=== PATIENT | female | born 1990 | race Caucasian/White ===

== ENCOUNTER 2024-04-02 14:36 | Outpatient (CLI) | payer OTHER, SELFPAY ==
--- NOTE | 2024-04-02 15:00 | CRLHL7_ITS ---
For Patients: As a result of the Century Cures Act, medical imaging exams and procedure reports are released immediately into your electronic medical record. You may view this report before your referring provider. If you have questions, please contact your health care provider. INDICATION: First trimester scan, establish dates. COMPARISON: None. TECHNIQUE: Real-time rooney-scale imaging of the pelvis was performed. FINDINGS: Sonographic imaging demonstrates a single living intrauterine gestation. The embryo demonstrates a regular cardiac rate measuring 159 beats per minute. The embryo`s crown-rump length measurement of 2.2 cm corresponds to a gestational age of 8 weeks 6 days with a sonographic due date of 11/06/2024. There is a normal-appearing yolk sac. There are no gross abnormalities noted within the embryo at this early state of development. The gestational sac has a normal appearance. There is no evidence of a perigestational hemorrhage. The amount of fluid within the sac appears appropriate for gestational age. The cervix is closed. The myometrium appears normal. Corpus luteal cyst right ovary. Left ovary not visualized. There are no suspicious fluid collections noted in the cul-de-sac. IMPRESSION: Normal first trimester OB ultrasound exam. Gestational age calculated at 8 weeks 6 days with a sonographic due date of 11/06/2024. Dictated by Justin Adames MD @ 04/02/2024 3:43:56 PM (Electronically Signed)
== END 2024-04-02 14:37 | disposition home or self-care (01) ==
LOC: US 14:36
PROVIDERS: Visit Provider Physician Assistant
DX: Z34.91 Encounter for supervision of normal pregnancy, unspecified, first trimester (principal); Z3A.08 8 weeks gestation of pregnancy
CPT/HCPCS: 76817; 86592; 86703; 86704; 86706; 86762; 86787; 86803; 86850; 86900; 86901; 87086; 87340; 87491; 87591

== ENCOUNTER 2024-05-14 12:34 | Outpatient (CLI) | payer OTHER, SELFPAY | END 2024-05-14 12:35 | disposition home or self-care (01) | LOC: NFLDREF 12:35 | PROVIDERS: Visit Provider Obstetrics & Gynecology | DX: R39.15 Urgency of urination (principal) | CPT/HCPCS: 87086 ==

== ENCOUNTER 2024-06-19 08:23 | Outpatient (CLI) | payer OTHER, SELFPAY | END 2024-06-19 08:24 | disposition home or self-care (01) | LOC: US 08:23 | PROVIDERS: Visit Provider Obstetrics & Gynecology | DX: O99.212 Obesity complicating pregnancy, second trimester (principal); O09.522 Supervision of elderly multigravida, second trimester; Z3A.20 20 weeks gestation of pregnancy | CPT/HCPCS: 76811 ==

== ENCOUNTER 2024-07-17 10:58 | Outpatient (CLI) | payer OTHER, SELFPAY ==
--- OUTSIDE RECORDS SUMMARY | 2024-07-16 12:00 | XMS_ITS ---
Patient Encounters Created on: December 05, 2023 Lesa Monterroso : 1990 Sex: Female Author Organization [facility] [place] [facility] [employer]. Address [address] [place] [id number] Social History Section No Social History Data Procedures No Procedures Data
--- NOTE | 2024-07-17 14:00 | CRLHL7_ITS ---
For Patients: As a result of the Century Cures Act, medical imaging exams and procedure reports are released immediately into your electronic medical record. You may view this report before your referring provider. If you have questions, please contact your health care provider. INDICATION: New onset IUGR on earlier ultrasound done today. COMPARISON: OB ultrasound 07/17/2024 and 06/19/2024. TECHNIQUE: Ultrasound OB pelvis biophysical profile. Real time rooney scale imaging of the fetus was performed without non-stress testing. FINDINGS: Sonographic imaging demonstrates a single living intrauterine gestation. The fetus has a regular cardiac rate of 135 beats per minute. The fetus has a breech orientation. The placenta lies posteriorly. The cervix is closed and measures 4.0 cm in length. Single deepest pocket measures 5.6 cm. breathing movements: 2/2 Gross body movements: 2/2 tone: 2/2 Amniotic fluid volume: 2/2 Total: 03/07 IMPRESSION: Normal biophysical profile score 8 out of 8. Dictated by Alma Lovell MD @ 07/18/2024 2:15:23 AM (Electronically Signed)
== END 2024-07-17 10:59 | disposition home or self-care (01) ==
LOC: US 10:58
PROVIDERS: Visit Provider Physician Assistant
DX: O36.5990 Maternal care for other known or suspected poor fetal growth, unspecified trimester, not applicable or unspecified (principal)
CPT/HCPCS: 76816; 76819; 76820

== ENCOUNTER 2024-07-25 08:53 | Outpatient (CLI) | payer OTHER, SELFPAY ==
--- NOTE | 2024-07-25 09:15 | CRLHL7_ITS ---
For Patients: As a result of the Century Cures Act, medical imaging exams and procedure reports are released immediately into your electronic medical record. You may view this report before your referring provider. If you have questions, please contact your health care provider. INDICATION: IUGR COMPARISON: 07/17/2024 TECHNIQUE: Real time rooney scale imaging of the fetus was performed as well as color Doppler and spectral Doppler analysis of the umbilical artery. FINDINGS/IMPRESSION: Sonographic imaging demonstrates a single living intrauterine gestation. Fetus demonstrates a regular cardiac rate of 143 beats per minute. Fetus has a vertex position. The umbilical artery demonstrates adequate diastolic blood flow. The S/D ratio measures 2.9. The amniotic fluid volume appears normal and there is a single deepest pocket measurement of 7.4 cm. Dictated by Justin Adames MD @ 07/25/2024 10:46:15 AM (Electronically Signed)
== END 2024-07-25 08:54 | disposition home or self-care (01) ==
LOC: US 08:54
PROVIDERS: Visit Provider Obstetrics & Gynecology
DX: O36.5920 Maternal care for other known or suspected poor fetal growth, second trimester, not applicable or unspecified (principal); Z3A.25 25 weeks gestation of pregnancy
CPT/HCPCS: 76815; 76820

== ENCOUNTER 2024-08-01 07:53 | Outpatient (CLI) | payer OTHER, SELFPAY ==
--- NOTE | 2024-08-01 08:15 | CRLHL7_ITS ---
For Patients: As a result of the Century Cures Act, medical imaging exams and procedure reports are released immediately into your electronic medical record. You may view this report before your referring provider. If you have questions, please contact your health care provider. INDICATION: IUGR COMPARISON: 07/25/2024 TECHNIQUE: Real time rooney scale imaging of the fetus was performed as well as color Doppler and spectral Doppler analysis of the umbilical artery. FINDINGS/IMPRESSION: Sonographic imaging demonstrates a single living intrauterine gestation. Fetus demonstrates a regular cardiac rate of 139 beats per minute. Fetus has a vertex position. The umbilical artery demonstrates adequate diastolic blood flow. The S/D ratio measures 2.8. The amniotic fluid volume appears normal and there is a single deepest pocket measurement of 5.2 cm. Cervix is closed and measures 4.0 cm. Dictated by Justin Adames MD @ 08/01/2024 9:52:33 AM (Electronically Signed)
== END 2024-08-01 07:54 | disposition home or self-care (01) ==
PROVIDERS: Visit Provider Obstetrics & Gynecology
DX: O36.5990 Maternal care for other known or suspected poor fetal growth, unspecified trimester, not applicable or unspecified (principal)
CPT/HCPCS: 76815; 76820

== ENCOUNTER 2024-08-12 08:31 | Outpatient (CLI) | payer OTHER, SELFPAY | END 2024-08-12 08:32 | disposition home or self-care (01) | LOC: NFLDREF 08-19 04:47 | PROVIDERS: Visit Provider Obstetrics & Gynecology | DX: Z34.03 Encounter for supervision of normal first pregnancy, third trimester (principal) | CPT/HCPCS: 85461; 86592; 86850 ==

== ENCOUNTER 2024-08-23 08:05 | Outpatient (CLI) | payer OTHER, SELFPAY | END 2024-08-23 08:06 | disposition home or self-care (01) | LOC: NFLDREF 09-02 00:15 | PROVIDERS: Visit Provider Obstetrics & Gynecology | DX: R73.09 Other abnormal glucose (principal) | CPT/HCPCS: 82951; 82952 ==

== ENCOUNTER 2024-09-09 08:09 | Outpatient (CLI) | payer OTHER, SELFPAY ==
--- NOTE | 2024-09-09 08:15 | CRLHL7_ITS ---
For Patients: As a result of the Century Cures Act, medical imaging exams and procedure reports are released immediately into your electronic medical record. You may view this report before your referring provider. If you have questions, please contact your health care provider. OB ULTRASOUND LMP: 01/29/2024. MELISSA by LMP: 11/04/2024. GA: 32 w, 0 d. Single. Comparison: [facility] 08/07/2024. US 08/01/2024, 07/25/2024, 07/17/2024. INDICATION: History of IUGR. TECHNIQUE: Real time rooney scale imaging of the fetus was performed. Transabdominal. CERVIX: Not visualized. POSITIONING: Vertex. AMNIOTIC FLUID: 5.8 cm. SDP (N: greater than 2 x 1 cm) PLACENTA: Technique: Transabdominal. PLACENTA POSITION: Posterior. DOPPLER: heart rate: 141 bpm. Umbilical artery: 3.6 S/D. (28-34 w = less than 4.0.) BIOMETRY: BPD: 8.1 cm. 32 w, 3 d, 52.5 percent. HC: 30.0 cm. 33 w, 2 d, 47.6 percent. AC: 28.1 cm. 32 w, 1 d, 51.5 percent. FL: 5.6 cm. 29 w, 4 d, <3 percent. FL/AC ratio: 20.1 percent. HC/AC ratio: 1.07. EFW: 1777 g. Weight: 3 lbs, 15 oz. age by this US: 31 w, 6 d. MELISSA by this US: 11/05/2024. Percentile by MELISSA: 23.9 percent. IMPRESSION: 1. Sonographic gestational age 31 weeks 6 days and sonographic due date 11/05/2024. Good correlation with dates. Normal interval of growth. 2. Estimated weight 24th percentile. Abdominal circumference 52nd percentile. 3. Femur length less than 3rd percentile. 4. Normal S/D ratio 3.6. Justin Adames M.D. Diagnostic Radiologist [email or web address] DON/jhonny barry/Dictated by: Justin Adames MD @ 09/09/2024 9:28:00 AM (Electronically Signed)
== END 2024-09-09 08:10 | disposition home or self-care (01) ==
PROVIDERS: Visit Provider Obstetrics & Gynecology
DX: O24.419 Gestational diabetes mellitus in pregnancy, unspecified control (principal); O36.5930 Maternal care for other known or suspected poor fetal growth, third trimester, not applicable or unspecified; Z3A.32 32 weeks gestation of pregnancy
CPT/HCPCS: 76816; 76820

== ENCOUNTER 2024-09-23 08:06 | Outpatient (CLI) | payer OTHER, SELFPAY ==
--- NOTE | 2024-09-23 08:15 | CRLHL7_ITS ---
For Patients: As a result of the Century Cures Act, medical imaging exams and procedure reports are released immediately into your electronic medical record. You may view this report before your referring provider. If you have questions, please contact your health care provider. INDICATION: BMI TECHNIQUE: Limited transabdominal two-dimensional rooney-scale ultrasound examination. COMPARISON: 09/09/2024 FINDINGS: There is a living fetus in cephalic lie with gestational age of 34 weeks and EDC of 11/04/2024. The biophysical profile score is 8/8 with component scores of 2 for breathing movements, 2 for gross body movements, 2 for tone and 2 for amniotic fluid/SDP. The heart rate is measured at 138 beats per minute and the rhythm appears regular. The amniotic fluid volume is within normal limits with single deepest pocket of 5.1 cm. The placenta is posterior and superior to the cervical os. There is no evidence of previa. IMPRESSION: 1. Living fetus in cephalic lie with gestational age of 34 weeks and EDC of 11/04/2024. 2. Biophysical profile score is 8/8. Dictated by Zeyad Drummond MD @ 09/23/2024 10:29:18 AM (Electronically Signed)
== END 2024-09-23 08:07 | disposition home or self-care (01) ==
LOC: US 08:06
PROVIDERS: Visit Provider Obstetrics & Gynecology
DX: O99.213 Obesity complicating pregnancy, third trimester (principal); Z3A.34 34 weeks gestation of pregnancy
CPT/HCPCS: 76819

== ENCOUNTER 2024-09-30 08:11 | Outpatient (CLI) | payer OTHER, SELFPAY | END 2024-09-30 08:12 | disposition home or self-care (01) | PROVIDERS: Visit Provider Obstetrics & Gynecology | DX: O99.210 Obesity complicating pregnancy, unspecified trimester (principal) | CPT/HCPCS: 76819 ==

== ENCOUNTER 2024-10-07 08:09 | Outpatient (CLI) | payer OTHER, SELFPAY | END 2024-10-07 08:10 | disposition home or self-care (01) | LOC: US 08:10 | PROVIDERS: Visit Provider Obstetrics & Gynecology | DX: O99.213 Obesity complicating pregnancy, third trimester (principal); Z3A.36 36 weeks gestation of pregnancy | CPT/HCPCS: 76816; 76819 ==

== ENCOUNTER 2024-10-07 09:15 | Outpatient (CLI) | payer OTHER, SELFPAY | END 2024-10-07 09:16 | disposition home or self-care (01) | LOC: NFLDREF 10-08 15:20 | PROVIDERS: Visit Provider Obstetrics & Gynecology | DX: Z34.03 Encounter for supervision of normal first pregnancy, third trimester (principal) | CPT/HCPCS: 87081; 87653 ==

== ENCOUNTER 2024-10-14 08:14 | Outpatient (CLI) | payer OTHER, SELFPAY ==
--- NOTE | 2024-10-14 08:15 | CRLHL7_ITS ---
For Patients: As a result of the Cures Act, medical imaging exams and procedure reports are released immediately into your electronic medical record. You may view this report before your referring provider. If you have questions, please contact your health care provider. OB ULTRASOUND BIOPHYSICAL PROFILE LMP: 01/29/2024. MELISSA by LMP: 11/04/2024. GA: 37 w, 0 d. Single. Comparison: 10/07/2024, 09/30/2024, 09/23/2024. INDICATION: Obesity in . TECHNIQUE: Real time grayscale imaging of the fetus was performed. Transabdominal. CERVIX: Not visualized. POSITIONING: Vertex. AMNIOTIC FLUID: 6.6 cm. SDP (N: greater than 2 x 1 cm) BIOPHYSICAL PROFILE: 2: Gross body movements 2: tone 2: Respiratory activity 2: Amniotic fluid SDP (N: greater than 2 x 1 cm) 03/07: Total score PLACENTA: Technique: Transabdominal. PLACENTA POSITION: Posterior. DOPPLER: heart rate: 135 bpm. IMPRESSION: Normal biophysical profile 03/07. Justin Adames M.D. Diagnostic Radiologist [email or web address] DON/jhonny barry/Dictated by: Justin Adames MD @ 10/14/2024 10:27:00 AM (Electronically Signed)
== END 2024-10-14 08:15 | disposition home or self-care (01) ==
LOC: US 08:14
PROVIDERS: Visit Provider Obstetrics & Gynecology
DX: O99.213 Obesity complicating pregnancy, third trimester (principal); Z3A.37 37 weeks gestation of pregnancy
CPT/HCPCS: 76819

== ENCOUNTER 2024-10-21 02:02 | Inpatient (IN) | payer OTHER, SELFPAY ==
[2024-10-21] VITALS (26 sets, daily range): BP systolic 104–149; BP diastolic 63–98; PULSE 70–134; RESP 16–18; TEMP 36.1–36.9; O2SAT 89–100; BMI 46.9
[2024-10-21] MEDS: miSOPROStoL 25 MCG/0.25 TABLET PO (02:23)
[2024-10-21] MEDS: AMPICILLIN 2 GM in 0.9 % SODIUM CHLORIDE Mini-bag 100 ML IVPB (02:23)
[2024-10-21 02:30] LABS: Basophils Percent Auto 0.2 % (0.0-3.0); Eosinophils Percent Auto 0.7 % (0.0-7.0); Hematocrit 37.3 % (33.0-51.0); Hemoglobin* 12.7 gm/dL (12.0-16.0); Immature Granulocytes Pct Auto 0.1 %; Lymphocytes Percent Auto 14.9 % (20-44); Mean Corpuscular HGB Conc 34 gm/dL (32-36); Mean Corpuscular Hemoglobin 29 pg (26-34); Mean Corpuscular Volume 85 fL (80-100); Monocytes Percent Auto 4.1 % (0.0-11.0); Platelet Count* 291 K/uL (140-440); RDW Coefficient of Variation % 13.3 % (11.5-15.5); Red Blood Count 4.37 m/uL (4.00-5.20); White Blood Count* 13.38 K/uL (4.50-11.00)
[2024-10-21 02:32] LABS: Slide Review Reflex No
[2024-10-21] MEDS: hydrOXYzine pamoate 25 MG CAPSULE 100 MG PO (03:32)
[2024-10-21] MEDS: MORPHINE 10 MG/ML inj IM (03:33)
[2024-10-21] MEDS: AMPICILLIN 1 GM in 0.9 % SODIUM CHLORIDE Mini-bag 100 ML IVPB (05:59)
--- NOTE | 2024-10-21 06:23 | P.LDBA_ITS ---
Subjective History of Present Illness Date Seen: 10/21/24 Narrative: Patient was being admitted to Labor and Delivery for PROM. She is a 34 year old at 38 0/7 weeks gestation. Her full history and physical was dictated by Dr. Archibald on 10/14/2024. Please see this for details. Patient presented to the Center at 0118 following SROM at 0020, clear fluid noted. Gross ruptured of membranes confirmed upon admission. Patient was feeling menstrual-like cramping, but no overt contractions. heart rate tracing category 1. Cervix initially 1.5 cm/70% effaced/-3 station. GBS prophylaxis initiated for known GBS positive status. Cytotec 25 mcg PO administered. Now in active labor, requested epidural. Specific Issues/Plans Spouse: Henrry. Baby: Boy! Leon name # 08/12/2024 Gestational Diabetes, A1 (as of 10/14) Elevated 1hr GTT: 159 3hr GTT 08/23/24: F 97 (H), 1hr 198 (H), 2hr 168 (H), 3hr 96 (NL) Nutrition referral completed on 08/28/24 # growth restriction - 8% at follow-up (for suboptimal visualization at 20wk) w/ MFM on 07/17 - Repeat growth US at [facility] 08/07/2024: EFW 17% so no longer meets criteria for weekly NST + KIM. - Continue monthly EFW and if EFW < 10% in the future then will need to reinstate weekly NST + KIM - Normal EFW as of 10/07 # conceived while on Wegovy, last injection 02/26 She reported a 30 lb weight loss # obesity, BMI 43.9 Hemoglobin A1c: 5.3 Aspirin 81 mg starting at 12 weeks Nutrition referral placed 04/02/2024 Anesthesiology consult: 10/14: [] MFM consult with level 2: referral on 05/01/24 MFM recommendations: Wkly BPP starting at 34 weeks # Ocular migraines At 1st OB she discontinued her propanolol # Family history of pulmonary embolism Patient has had a negative thrombophilia workup # AMA Maternity T21: No increased risk for aneuploidy: Boy! LVL 2: referral ordered on 05/01/2024 # Rh-negative (B-): Spouse is Rh(+) RhoGAM 08/12/2024 # GBS positive, no antibiotic allergy Ampicillin in labor Imagin06/19/2024 LvL 2 US: Variable position. SDP 4.9cm. EFW 25%. No anomalies identified. 07/17/2024: Variable position. SDP 4.8cm. Post placenta w/o previa. 3 vessel cord. EFW 7.5% 08/07/2024: Vtx. SDP 6.5cm. EFW 17% 09/09/2024: Vertex, SDP 5.8 cm. EFW 1777 g, 3 lb 15 oz, 23.9%. FL <3%. S/D: 3.6. 10/07/24: Cephalic, SDP 5.9, BPP 8/8, EFW 43.7%, BPD 94%, HC 62.9%, AC 57.2%, FL 4.9%. Immunizations/Other: covid: 07/25/24 flu: 05/01/2024 Tdap: 08/28/2024 RSV: 09/09/24 Rhogam: 08/12/2024 34 week hgb: 12.2 H&P: Dr. Archibald 10/14/2024 OB - Problem Based A/P Additional Plan (1) SROM (spontaneous rupture of membranes): Status: Acute (2) Active labor at term: Status: Acute (3) growth restriction antepartum: Status: Acute (4) Gestational diabetes: Status: Acute (5) AMA (advanced maternal age) multigravida 35+: Status: Acute Delivery/Labor/Induction Plan Plan: expectant management OB Result Labs Blood Type: B (-) negative Rubella: immune RPR/VDLR: nonreactive GBS Status: positive HBsAG: negative OB Exam Physical Exam Vital signs: Temp Pulse Resp BP 98.2 F 70 18 112/63 10/21/24 04:45 10/21/24 04:45 10/21/24 04:45 10/21/24 04:45 Detailed Labor and Delivery Exam Patient Gravid: Yes Dilation (cm): 4 Effacement (%): 100 Contraction intensity: Strong/Firm Comments: cervical exam per nursing staff Fetus (Single) Station: 0 Amniotic Membrane Fluid Description: Clear Heart Rate Baseline: 120 Monitor Accelerations: Absent Monitor Decelerations: None Filter Washer And Presser Variability: Minimal (3-5)
[2024-10-21] MEDS: fentaNYL 100 MCG/2 ML inj 25 MCG INTRATHECA (06:25)
[2024-10-21] MEDS: LACTATED RINGERS 1000 ML 1,000 ML 1125 ML IV (06:27)
[2024-10-21] MEDS: CEFAZOLIN 2 GM INJ 3 GM IVP (07:10)
[2024-10-21] MEDS: AZITHROMYCIN 500 MG in 0.9 % SODIUM CHLORIDE 250 ml 250 ML 255 MG IVPB (07:15)
--- NOTE | 2024-10-21 07:18 | CRLHL7_ITS ---
For Patients: As a result of the Century Cures Act, medical imaging exams and procedure reports are released immediately into your electronic medical record. You may view this report before your referring provider. If you have questions, please contact your health care provider. INDICATION: INTRA OP EXAM. NO TOWEL COUNT PERFORMED, DOUBLE CHECKING FOR TOWELS. (Sic) COMPARISON: None available. TECHNIQUE: A single intraoperative radiograph of the lower abdomen and pelvis was performed at 0743 hours (as indicated in the study navigator in [place]). FINDINGS: Limited field of view (the right flank/paracolic gutter is excluded from the field of view, as is the lower pelvis just above the superior pubic rami). No radiopaque foreign body is identified. Dictated by Dane Hoffman MD @ 10/21/2024 7:57:30 AM (Electronically Signed)
--- NOTE | 2024-10-21 07:44 | SUR.OPER ---
PATIENT BROUGHT TO OR #5 PER OB BED. Patient positioned supine on OR #5 bed for the intubatioN ?Final approval of positioning by surgeon. SURGEON DECLARES POST OP X-RAY CLEAR OF RETAINED ITEMS.
--- NOTE | 2024-10-21 07:51 | P.ANES_ITS ---
Anesthesia Charges Start Date/Time Anesthesia Start Date: 10/21/24 Anesthesia Start Time: 06:59 Stop Date/Time Anesthesia Stop Date: 10/21/24 Anesthesia Stop Time: 08:20 Summary Emergency: TIAN Coding CPT Codes CPT Codes: ANESTH CS DELIVERY - 85442 ([id number]) P3 - PATIENT W/SEVERE SYS DISEASE, QK - LINE APPLIANCE ASSEMBLER 2-4 CNCRNT ANES PROC, QX - STOKER INSTALLATION MECHANIC SVC W/ MD MED DIRECTION Additional Codes: Summary - Emergency: TIAN ([id number])
--- NOTE | 2024-10-21 07:51 | W.ANESCHARGE ---
Anesthesia Charges Start Date/Time Anesthesia Start Date: 10/21/24 Anesthesia Start Time: 06:59 Stop Date/Time Anesthesia Stop Date: 10/21/24 Anesthesia Stop Time: 08:20 Summary Emergency: TIAN Coding CPT Codes CPT Codes: ANESTH CS DELIVERY - 42781 ([id number]) P3 - PATIENT W/SEVERE SYS DISEASE, QK - ENDOCRINOLOGIST 2-4 CNCRNT ANES PROC, QX - BRANCH LENDING OFFICER SVC W/ MD MED DIRECTION Additional Codes: Summary - Emergency: TIAN ([id number])
--- NOTE | 2024-10-21 07:54 | SUR.OPER ---
CORD BLOOD SPECIMEN SENT WITH OB RN's
--- NOTE | 2024-10-21 08:13 | PM.OBPRCCS ---
Procedure Date of procedure: 10/21/24 Pre-op diagnosis: 1. Thirty-eight weeks gestation. 2. Terminal bradycardia during second stage of labor. 3. Failed vacuum attempt. Post-op diagnosis: same Procedure Done: Global Will [facility] bill your pro fee for this procedure?: Yes Blood Loss Measurement Type: EBL (300 mL) Bakri Used: No Surgeon: Elizabeth Colin MD Unit Manager [employer]: Mimi Jay MD Anesthesia Type: General Findings: Live-born male , cephalic presentation, Apgars 3, 6 and 8 at 1, 5 and 10 minutes respectively. Normal appearing uterus, tubes and ovaries. Procedure Name: Emergent low transverse section. Procedure Description: INDICATIONS: The patient received an ITN for labor analgesia at 0633. She was positioned in the dorsal supine position. Preparations were made for pushing, as the patient had been found to be completely dilated by her attending RN just prior to her request for regional analgesia. At 0651, the patient began pushing. I found that there was an anterior cervical rim, which was easily reduced over the vertex with maternal pushing effort. The heart tones demonstrated a deceleration to 50 beats per minute and then dagoberto to the 70s. The patient was repositioned in first the left lateral recumbent and then the right lateral recumbent position. Heart tones remained in the 70s to 80s. With the next maternal contraction at 0655, a kiwi vacuum was applied to the vertex, and gentle traction applied with maternal pushing effort. There was no visible descent of the vertex. heart tones were found to still be low. A scalp electrode was applied at 1793-8852, which confirmed heart tones in the 50s. A code white was called. The patient entered the operating room at 0659. She was quickly prepared and draped (allison catheter was inserted and the abdomen splashed with Betadine) in the dorsal supine position and general anesthesia was obtained. A Pfannenstiel skin incision was made with a scalpel. The subcutaneous adipose and fascia were incised in the midline and the incision extended laterally in a blunt fashion. The rectus muscles were then in the midline. The Jadon O retractor was then placed into the incision. The lower uterine segment was then incised in a transverse fashion with the scalpel. The uterine incision was extended laterally with blunt finger fractionation. The infant's head was found to be impacted in the pelvis, and the left shoulder was presenting at the hysterotomy incision. With some difficulty, I was able to flex the neck and rotate the shoulder such that the head was delivered while maintaining flexion. The infant was delivered at 0707. The cord was doubly clamped and cut, and the was handed off the field for evaluation and resuscitation. The placenta was delivered spontaneously with umbilical cord traction and fundal massage. The uterus was cleared of all clots and debris. The uterine incision was reapproximated in a running locking fashion with a 0 chromic suture. A 2nd layer of the same suture was used to imbricate in horizontal fashion. The gutters were irrigated and suctioned. Hemostasis was visualized. Cassandra was placed over the raw lower uterine segment surfaces. All instruments and retractors were removed. The anterior peritoneum was reapproximated in a running fashion with a 3-0 Vicryl suture. The subfascial tissues were carefully inspected and hemostasis assured. The fascia was reapproximated in a running fashion with a looped 0 Maxon suture. The subcutaneous tissues were copiously irrigated. Hemostasis was assured. The subcutaneous fat layer was reapproximated in a running fashion with 3-0 plain gut. The skin was closed in a subcuticular fashion with 4-0 Vicryl. A silver Mepilex dressing was applied over the incision. An intraoperative x-ray was performed that confirmed that there were no instruments or sponges left in the abdomen or pelvis, as a complete sponge and instrument count was not completed prior to the incision. Cord blood was obtained for maternal Rh-negative status following delivery of the placenta. An RN was able to draw a venous blood gas off the placenta as well. The patient was taken to the recovery room, awake, and in stable condition. She did receive 3 grams of IV Ancef and 500 mg IV azithromycin intraoperatively. Complications: None. Pathology: specimen obtained, sent to pathology (Placenta, as IUGR noted during the ) Surgery Debrief Performed: Yes Condition: stable Disposition: PACU
--- NOTE | 2024-10-21 08:31 | P.ANES_ITS ---
Anesthesia Charges Start Date/Time Anesthesia Start Date: 10/21/24 Anesthesia Start Time: 06:59 Stop Date/Time Anesthesia Stop Date: 10/21/24 Anesthesia Stop Time: 08:20 Summary Emergency: DIE PRESSER Coding CPT Codes CPT Codes: ANES/ANALG CS DELIVER ADD-ON - 77367 ([id number]) P3 - PATIENT W/SEVERE SYS DISEASE, QK - SURVEILLANCE MANAGER 2-4 CNCRNT ANES PROC, QX - DIE PRESSER SVC W/ MD MED DIRECTION Additional Codes: Summary - Emergency: DIE PRESSER ([id number])
--- NOTE | 2024-10-21 08:31 | W.ANESCHARGE ---
Anesthesia Charges Start Date/Time Anesthesia Start Date: 10/21/24 Anesthesia Start Time: 06:59 Stop Date/Time Anesthesia Stop Date: 10/21/24 Anesthesia Stop Time: 08:20 Summary Emergency: GARDE MANAGER Coding CPT Codes CPT Codes: ANES/ANALG CS DELIVER ADD-ON - 54224 ([id number]) P3 - PATIENT W/SEVERE SYS DISEASE, QK - UTILITY FORESTER 2-4 CNCRNT ANES PROC, QX - GARDE MANAGER SVC W/ MD MED DIRECTION Additional Codes: Summary - Emergency: GARDE MANAGER ([id number])
--- NOTE | 2024-10-21 08:32 | P.NB_ITS ---
Nerve Block Nerve Block Time Seen by Provider: 08:10 Date Seen: 10/21/24 Type of block requested by surgeon for post-operative analgesia: TAP Side: bilateral Time out performed: Yes Verification of patient name: Yes Verification of date of : Yes Site marking: not applicable Name of person performing procedure: Jose Continuous monitoring Was continuous monitoring of O2 sat, B/P, school bus monitor, recorded every 15 minutes?: Yes Procedure Checklist: sterile prep, needles and gloves Ultrasound guided. Images saved: Yes Medications given in 5ml increments after negative aspiration: Marcaine %: 0.25 mL: 30 Needle gauge: 20 and Exparel mL: 10 Patient tolerated procedure well: Yes Block Charges Block Charge (with Pro Fee): TAP Bilateral Use of Ultrasound Machine for Block: Yes- US Guidance/pain block
--- NOTE | 2024-10-21 08:34 | P.ANBPRC_ITS ---
[facility] Medical History (Updated 10/21/24 @ 08:02 by Mimi Jay MD) Obesity ?E66.9 - Obesity, unspecified (ICD-10) Surgical History (Updated 10/21/24 @ 08:02 by Mimi Jay MD) Status post primary low transverse section (10/21/24) ?Z98.891 - History of uterine scar from previous surgery (ICD-10) History of wisdom tooth extraction ?K08.409 - Partial loss of teeth, unspecified cause, unspecified class (ICD- 10) Family History Paternal Grandfather Pulmonary embolism Stroke Father Pulmonary embolism Diabetes Pancreatic cancer Paternal Grandmother Diabetes Mother Diabetes Social History (Updated 10/14/24 @ 09:35 by Alicia Archibald MD) Narrative: 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 Marital status: . Congregation/cultural needs: no. Chemical or radiation exposure: no. Pre- tobacco use: no. Pre- alcohol use: no. Current tobacco use: no. Current alcohol use: no. Recreational drug use: no. Dietary restrictions: no. Blood transfusion acceptable in an emergency: yes. PSYCHOSOCIAL HISTORY: History of depression or currently depressed: no. Current or past physical, emotional, or sexual mistreatment: Denies. Problems that will make it hard to make it to appointments: No. What is your current living situation?: I presently have a place to live Problems where you live: no known problems In the past 12 months, utilities in danger of being shut off: no In past 12 months, lack of transportation kept you from medical appts, meetings, work, or getting things needed for daily living: no In the past 12 mos, have been you worried that your food would run out before you had money to buy more?: never true In the past 12 mos, the food you bought just didn't last and you didn't have money to buy more?: never true Smoking Status: Never smoker How often does anyone, including family, friends and others, physically hurt you : never How often does anyone, including family, friends and others, insult or talk down to you: never How often does anyone, including family, friends and others, threaten you with harm: never How often does anyone, including family, friends and others, scream or curse at you: never Meds Home Medications and Allergies Home Medications ?Medication ?Instructions ?Recorded ?Confirmed ?Type [id number] 3-fat com #1 27 1 cap PO DAILY 04/02/24 10/21/24 History mg-1 mg-300 mg capsule cholecalciferol (vitamin D3) 50 50 mcg PO QDAY 04/02/24 10/21/24 History mcg (2,000 unit) capsule vitamin B complex 1 tab PO QDAY 04/02/24 10/21/24 History aspirin 81 mg tablet,delayed 81 mg PO QDAY 05/01/24 10/21/24 History release calcium carbonate (Tums) 200 mg PO BID 07/25/24 10/21/24 History magnesium 200 mg tablet 200 mg PO QDAY 07/25/24 10/21/24 History Allergies Allergy/AdvReac Type Severity Reaction Status Date / Time No Known Drug Allergies Allergy Verified 10/21/24 01:30 Results Labs Labs: Laboratory Results - last 24 hr 10/21/24 02:20 WBC 13.38 H RBC 4.37 Hgb 12.7 Hct 37.3 MCV 85 MCH 29 MCHC 34 RDW Coeff of Paty 13.3 Plt Count 291 Neut % (Auto) 80.0 H Lymph % (Auto) 14.9 L [place] % (Auto) 4.1 Eos % (Auto) 0.7 Baso % (Auto) 0.2 Neut # (Auto) 10.70 H Lymph # (Auto) 2.00 [place] # (Auto) 0.50 Eos # (Auto) 0.10 Baso # (Auto) 0.00 Abs Immat Gran (auto) 0.00 Imm/Tot Granulo (auto) 0.1 Blood Type B Negative Antibody Screen NEGATIVE Vital Signs Vital Signs: Last Vital Signs Temp 96.9 F L 10/21/24 08:15 Pulse 97 10/21/24 08:30 Resp 18 10/21/24 08:30 BP 136/98 H 10/21/24 08:30 Pulse Ox 97 10/21/24 08:30 O2 Del Method Room Air 10/21/24 08:30 Weight: 127.913 kg Height: 165.1 cm Anesthesia Procedures Intrathecal Patient Location: OB Start Time: 06:20 Stop Time: 06:35 Start Date: 10/21/24 Stop Date: 10/21/24 Reason for Block: primary anesthetic Patient Position: sitting Performed By: Nirmal Andrade Preanesthetic Checklist: IV checked and anesthesia consent Prep: chlorhexidine gluconate Approach: midline Vertebral Space: lumbar (1-5) Needle Type: [place] (24) Injection Technique: single-shot Needle gauge: 24 Needle Length (cm): 10 cm Events: cerebrospinal fluid
[2024-10-21] MEDS: KETOROLAC 30 MG/ML inj IVP ×2 (14:17→20:50)
[2024-10-21] MEDS: ACETAMINOPHEN 500 MG TABLET 1000 MG PO (17:07)
[2024-10-21] MEDS: hydrOXYzine pamoate 25 MG CAPSULE PO (21:26)
[2024-10-22 01:10] VITALS: BP 117/73; PULSE 80; RESP 18; TEMP 36.8
[2024-10-22] MEDS: MAG HYDROX/ALUMINUM HYD/SIMETH 30 ML ORAL.SUSP PO ×2 (01:16→20:51)
[2024-10-22] MEDS: KETOROLAC 30 MG/ML inj IVP ×2 (03:10→09:03)
[2024-10-22 05:05] VITALS: BP 95/61; PULSE 80; RESP 16; TEMP 36.6
[2024-10-22] MEDS: ACETAMINOPHEN 500 MG TABLET 1000 MG PO ×3 (05:05→22:38)
[2024-10-22 06:02] LABS: Hemoglobin* 10.8 gm/dL (12.0-16.0)
[2024-10-22 08:30] VITALS: BP 118/77; PULSE 75; RESP 18; TEMP 36.6; O2SAT 95
--- NOTE | 2024-10-22 08:54 | P.OBPN_ITS ---
OB - PN:Subj Subjective Date Seen: 10/22/24 Patient comments OB post-: no complaints, pain well controlled, tolerating diet and flatus present [place] status: doing well (on D10 for respiratory concerns. ) [place] feeding status: other (Not currently being put to breast. Encouraged pumping and . ) Narrative: Lesa feels well.? Her pain is well controlled with current medications.? She has no new complaints.? Urinary output is adequate and she is voiding without difficulty.? Has a good appetite, is tolerating a general diet, is passing flatus, and has had a bowel movement.? Has scant amount of rubra lochia.? She is ambulating well in the room. Supported by her partner. Baby is on IV fluids at this time and not being put to the breast. Will plan for 2hr GTT tomorrow morning. OB - PN: Obj Exam Physical Exam: Vital signs: Temp Pulse Resp BP Pulse Ox O2 Del Method 97.9 F 80 16 95/61 98 Room Air 10/22/24 05:05 10/22/24 05:05 10/22/24 05:05 10/22/24 05:05 10/21/24 19:45 10/22/24 05:05 Narrative: ?GENERAL APPEARANCE:? normal affect, alert, no distress? MOOD:? appropriate? CHEST:? clear to auscultation and percussion? HEART:? regular rate and rhythm? ABDOMEN:? soft, non-tender the uterine fundus is U/2 and is appropriate for the stage of recovery. Incision dressing is clean, dry, and intact.? EXTREMITIES:? normal and no edema? OB - PN: Obj Data Labs Labs: Laboratory Results - last 24 hr 10/22/24 05:39 Hgb 10.8 L Screen Negative OB - PN: A/P Delivery Assessment and Plan (1) Status post primary low transverse section: Status: Acute (2) bradycardia, delivered, current hospitalization: Status: Acute (3) Gestational diabetes mellitus (GDM), : Status: Acute Plan day: 1 Plan: routine care Comments: Anticipate discharge home tomorrow or the following day per patient preference. Plan for 2hr GTT tomorrow morning. Encourage pumping and consultation.
--- NOTE | 2024-10-22 09:17 | PM.ANPOST ---
Post Anesthesia Note Post Anesthesia Note Patient seen: Inpatient Respiratory Status: adequate Cardiovascular Status: adequate Mental Status: baseline Pain: adequate Temp: baseline Anesthetic awareness: N/A Complications: none Follow care: none
[2024-10-22] MEDS: IBUPROFEN 600 MG TABLET PO ×2 (14:00→20:35)
[2024-10-22 16:42] VITALS: BP 106/73; PULSE 74; RESP 18; TEMP 36.8; O2SAT 96
[2024-10-22 18:30] LABS: Rapid Plasma Reagin (RPR) Non Reactive (Non Reactive)
[2024-10-22 20:39] VITALS: BP 125/83; PULSE 82; RESP 20; TEMP 36.6; O2SAT 95
[2024-10-22] MEDS: hydrOXYzine pamoate 25 MG CAPSULE PO (20:51)
[2024-10-22] MEDS: CALCIUM CARBONATE 500 MG CHEW PO (23:42)
[2024-10-23 00:46] VITALS: BP 99/64; PULSE 78; RESP 18; O2SAT 96
[2024-10-23] MEDS: IBUPROFEN 600 MG TABLET PO ×4 (01:57→22:02)
[2024-10-23 04:19] VITALS: BP 115/76; PULSE 77; RESP 20; O2SAT 98
[2024-10-23] MEDS: ACETAMINOPHEN 500 MG TABLET 1000 MG PO ×3 (04:39→17:47)
[2024-10-23 06:59] LABS: Glucose Fasting 71 mg/dl (70-95)
[2024-10-23] MEDS: DOCUSATE SODIUM 100 MG CAPSULE PO (08:07)
--- NOTE | 2024-10-23 08:43 | PM.OBPNVD1 ---
OB - PN:Subj Subjective Date Seen: 10/23/24 Narrative: Lesa is a 34 y.o. G 1 P 1 who was admitted to [facility] for PROM. ?She had an emergency section due to bradycardia that was uncomplicated. The patient feels well. ?The pain is well controlled with current medications. ?She has no new complaints. ?She is breast feeding and reports things are going okay. the patient has done well.? Vitals have been stable.? She has remained afebrile.? Has a good appetite, is tolerating a general diet. ?She is voiding without difficulty.? She is passing gas and has had a small bowel movement.? She is ambulating and denies any dizziness.? Has small amount of rubra lochia. 2 hour glucose in progress today. Problems: none OB - PN: Obj Exam Physical Exam: Vital signs: Temp Pulse Resp BP Pulse Ox O2 Del Method 97.9 F 77 20 115/76 98 Room Air 10/22/24 20:39 10/23/24 04:19 10/23/24 04:19 10/23/24 04:19 10/23/24 04:19 10/23/24 04:19 Narrative: GENERAL APPEARANCE:? normal affect, alert, no distress MOOD:? appropriate CHEST:? clear to auscultation HEART:? regular rate and rhythm ABDOMEN:? soft, non-tender the uterine fundus is At Umbilicus, Midline and is appropriate for the stage of recovery. EXTREMITIES:? normal and trace edema INCISION: Silver dressing in place; clean, dry, and intact OB - PN: Obj Data Labs Labs: Laboratory Results - last 24 hr 10/21/24 10/22/24 10/23/24 02:20 05:39 06:01 Glucose Tolerance RPR Screen Non Reactive Screen Negative OB - PN: A/P Delivery Assessment and Plan (1) care and examination immediately after delivery: Status: Acute (2) Gestational diabetes mellitus (GDM), : Status: Acute (3) Lactating mother: Status: Acute Plan day: 1 Plan: routine care Comments: Routine post-op care? , may see if needed? Hgb 10.8. ? GDM. 2 hour gct in progress. Anticipate discharge tomorrow
[2024-10-23 08:46] LABS: Glucose 2 Hour 131 mg/dl (70-155)
[2024-10-23 09:35] VITALS: BP 115/79; PULSE 88; RESP 16; TEMP 36.8; O2SAT 98
[2024-10-23 16:45] VITALS: BP 113/78; PULSE 90; RESP 16; TEMP 36.8; O2SAT 96
[2024-10-23 21:32] VITALS: BP 127/85; PULSE 90; RESP 16; TEMP 36.6; O2SAT 96
[2024-10-23] MEDS: CALCIUM CARBONATE 500 MG CHEW PO (22:02)
[2024-10-24] MEDS: IBUPROFEN 600 MG TABLET PO ×2 (04:46→10:55)
[2024-10-24 08:15] VITALS: BP 119/81; PULSE 90; RESP 16; TEMP 36.6; O2SAT 98
[2024-10-24] MEDS: ACETAMINOPHEN 500 MG TABLET 1000 MG PO (08:44)
[2024-10-24] MEDS: DOCUSATE SODIUM 100 MG CAPSULE PO (08:45)
--- NOTE | 2024-10-24 08:47 | PM.OBDSVD1 ---
DS: Providers Provider Date Seen: 10/24/24 Date of admission: 10/21/24 02:02 Primary care physician: Not a Local Provider Admitting Clinician: Elizabeth Colin MD Attending Physician on discharge: Dari METZ Date of Discharge: 10/24/24 DS: Diagnosis Discharge Diagnosis (1) care and examination immediately after delivery: Status: Acute (2) Lactating mother: Status: Acute (3) Gestational diabetes mellitus (GDM), : Status: Acute (4) Status post primary low transverse section: Status: Acute Exam Narrative: Exam Narrative: GENERAL APPEARANCE:? normal affect, alert, no distress MOOD:? appropriate CHEST:? clear to auscultation HEART:? regular rate and rhythm ABDOMEN:? soft, non-tender the uterine fundus is At Umbilicus, Midline and is appropriate for the stage of recovery. EXTREMITIES:? normal and mild edema Incision: Silvadene dressing in place with 1 one cm spot of blood, dark red at mid inferior of dressing. Const: Vital Signs, click to edit/add: Vital Signs - 24 hr 10/23/24 09:35 10/23/24 16:45 10/23/24 21:32 Temperature 98.2 F 98.3 F 97.9 F Pulse Rate [Pulse Oximeter] 88 90 90 Respiratory Rate 16 16 16 Blood Pressure [Le ft Arm] 115/79 113/78 127/85 Pulse Oximetry 98 96 96 Oxygen Delivery Me thod Room Air Room Air Room Air 10/24/24 08:15 Temperature 97.9 F Pulse Rate [Pulse Oximeter] 90 Respiratory Rate 16 Blood Pressure [Le ft Arm] 119/81 Pulse Oximetry 98 Oxygen Delivery Me thod Room Air OB - DS: Summary Hospital Course Hospital Course: Lesa is a 34 y.o. G 1 P 1001 who was admitted to [facility] for PROM at term. Labor complicated by distress which prompted a code white for section that was uncomplicated. The patient feels well.? The pain is well controlled with current medications.?She declines any narcotics for pain control to be sent home. She has no new complaints.? She is breast feeding and reports things are being worked on. Baby has some bilirubin issues that may prompt him to stay another night in the hospital. the patient has done well.? Vitals have been stable.? She has remained afebrile.? Has a good appetite, is tolerating a general diet.? She is voiding without difficulty.? She is passing gas and has had a bowel movement.? She is ambulating and denies any dizziness.? Has small amount of rubra lochia. She is planning POP for prevention.? ?? Problems: none? ?? plan:? Discharge home with baby when baby is discharged. To house guest until then. .? Follow up in 1 week and 6 weeks.? , may see if needed? Hgb 10.8. Advised antihistamines for sleep should be avoided due to effect decreasing milk supply.? ?Pt passed 2 hour glucose screening today for DM Labs WNL or stable with trending? ? ? Call for signs/symptoms of preeclampsia? Peripartum Data Infant delivery method: Primary C/S; Labored Laceration description: None Episiotomy description: None Procedures: Procedures Operation Date: 10/21/24 07:15 Actual Procedure Side Surgeon p EMERGENT LOW TRANSVERSE Section Not Applicable Elizabeth Colin MD complications: none [place] Infant Gender: Male Discharge Plan: Home Status at Discharge Overall status at discharge: patient is progressing back to baseline Time Spent with Patient Time attestation: Total time spent providing and/or coordinating discharge services: Time spent: Less than 30 minutes Discharge Plan Discharge Disposition: Home, Self-Care Date of Admission: 10/21/24 02:02 Attending Provider on Discharge: Alcira Tate Primary Care Provider: Provider,Not a Local Condition: Stable Anticipated Discharge Date/Time: 10/24/24 12:00 Discharge Medications: Continued [id number] 3-fat com #1 27-1-300 mg capsule 1 cap PO DAILY cholecalciferol (vitamin D3) 50 mcg (2,000 unit) capsule 50 mcg PO QDAY vitamin B complex Tablet 1 tab PO QDAY calcium carbonate [Tums] 200 mg calcium (500 mg) tablet,chewable 200 mg PO BID magnesium 200 mg tablet 200 mg PO QDAY Discontinued aspirin 81 mg tablet,delayed release (DR/EC) 81 mg PO QDAY (DME) Test Strips Misc See Rx Instructions .MEDSUPPLY Qty: 100 3RF Rx Instructions: Test blood sugar 4 times daily. (DME) lancets Misc See Rx Instructions .MEDSUPPLY Qty: 100 3RF Rx Instructions: Test blood sugar 4 times daily. (DME) Blood Glucose Meter Misc See Rx Instructions .MEDSUPPLY Qty: 1 0RF Rx Instructions: As directed Discharge Orders: Discharge Order (Routine); Ordered 10/24/24 Ordered By: Alcira Tate Patient Education: OB Care, OB Over the Counter Medication Information, OB /Breast Feeding Activity Level: No strenuous activity and Light activity Discharge Diet: Regular Follow Up Appointments: [facility] [Provider Group] Forms: MyHealth Info Instructions
== END 2024-10-24 16:05 | disposition home or self-care (01) | DRG 788 ==
LOC: OB OUT 02:03 → OB 02:03
PROVIDERS: Advanced Practice Midwife; Obstetrics & Gynecology; Admitting Provider Obstetrics & Gynecology; Visit Provider Obstetrics & Gynecology
PROC: 10D00Z1 Extraction of Products of Conception, Low, Open Approach (ICD-10-PCS; CPT 59514; principal; 2024-10-21 07:00)
DX: O42.02 Full-term premature rupture of membranes, onset of labor within 24 hours of rupture (principal); O24.420 Gestational diabetes mellitus in childbirth, diet controlled; O99.824 Streptococcus B carrier state complicating childbirth; O76 Abnormality in fetal heart rate and rhythm complicating labor and delivery; G89.18 Other acute postprocedural pain; O36.5930 Maternal care for other known or suspected poor fetal growth, third trimester, not applicable or unspecified; O26.893 Other specified pregnancy related conditions, third trimester; Z67.21 Type B blood, Rh negative; O99.214 Obesity complicating childbirth; Z3A.38 38 weeks gestation of pregnancy; Z37.0 Single live birth
CPT/HCPCS: 01961; 01967; 01968; 36415; 59200; 64488; 74018; 76942; 82947; 82950; 82962; 85018; 85025; 85461; 86592; 86850; 86900; 86901; 88307; 99140; A4314; A9270; J0290; J0330; J0456; J0665; J0666; J0690; J1100; J1885; J2250; J2270; J2371; J2405; J2590; J2710; J2791; J3010; J7050; J7120

== ENCOUNTER 2024-12-04 08:51 | Outpatient (CLI) | payer OTHER, SELFPAY | END 2024-12-04 08:52 | disposition home or self-care (01) | LOC: NFLDREF 08:51 | PROVIDERS: Visit Provider Registered Nurse | DX: O90.0 Disruption of cesarean delivery wound (principal) | CPT/HCPCS: 87070 ==

== ENCOUNTER 2025-01-16 13:44 | Outpatient (CLI) | payer OTHER, SELFPAY | END 2025-01-16 13:45 | disposition home or self-care (01) | PROVIDERS: Visit Provider Registered Nurse | DX: Z30.430 Encounter for insertion of intrauterine contraceptive device (principal); Z79.85 Long-term (current) use of injectable non-insulin antidiabetic drugs | CPT/HCPCS: 80053; 80061; 83525; 84443 ==